=== PATIENT | female | born 1935 | race Caucasian/White ===

== ENCOUNTER 2021-06-28 10:45 | Outpatient (CLI) | payer MEDICARE, BC | END 2021-06-28 10:46 | disposition home or self-care (01) | LOC: BICULT 10:45 | PROVIDERS: ATTEND Family Medicine | DX: N18.31 Chronic kidney disease, stage 3a (principal) | CPT/HCPCS: 76770; 93975 ==

== ENCOUNTER 2022-03-07 10:32 | Inpatient (IN) | payer MEDICARE, BC ==
[2022-03-07] MEDS ORDERED: Magnesium 2 GM/50 ML BAG (IN WATER) ONE (10:49)
[2022-03-07] MEDS ORDERED: Furosemide 40 MG/4 ML VIAL ONE ×2 (10:49→11:25)
[2022-03-07 10:51] LABS: Actual Bicarbonate (HCO3a) 24.5 mEq/L (22-28); Analyzer IN Cardio ER; Base Excess (BEa) -3.4 mEq/L (-2.0 to +3.0); Calcium, Ionized (arterial) 1.15 mmol/L (1.12-1.30); Carboxyhemoglobin (COHb) 0.3 gm% (0.0-3.0); Hemoglobin (Hb) 12.3 g/dL (12.0-16.0); Potassium - ABG Lab 4.24 mmol/L (3.70-5.30); pH, Arterial 7.25 (7.35-7.45)
[2022-03-07] MEDS ORDERED: Rocuronium Bromide 10 MG/ML (10ML VIAL) ONE (10:51)
[2022-03-07 11:03] LABS: #Lymphocytes 2.7 thou/uL (1.20-3.40); #Monocytes 0.6 thou/uL (0.11-0.59); #Neutrophils 6.6 thou/uL (1.40-6.50); %Eosinophils 0.4 % (0.0-10.0); %Lymphocytes 27.2 % (21.0-51.0); %Monocytes 6.1 % (0.0-10.0); %Neutrophils 66.3 % (42.0-75.0); Hemoglobin 11.6 g/dL (12.0-16.0); Mean Corpuscular HGB CONC 31.4 g/dL (32.0-36.0); Mean Corpuscular Volume 95.7 fl (78.0-98.0); Mean Platelet Volume 8.4 fL (7.4-10.4); Platelet Count 284 10x3/uL (130-400); RBC Distribution Width 13.4 % (11.5-14.5); Red Blood Cell (RBC) Count 3.85 mill/uL (4.20-5.40); White Blood Cell (WBC) Count 9.9 10x3/uL (4.8-10.8)
[2022-03-07] MEDS ORDERED: Midazolam HCl 2 mg/2 ml Vial ONE (11:21)
[2022-03-07 11:27] LABS: ALT (SGPT) 31 U/L (8-55); AST (SGOT) 32 U/L (5-34); Albumin 3.5 g/dL (3.4-4.8); Alkaline Phosphatase 103 U/L (40-110); Anion Gap 12 mmol/L (10-20); BUN (Urea Nitrogen) 21 mg/dL (9.8-20.1); Bilirubin, Total 1.2 mg/dL (0.2-1.2); CK (CPK) 67 U/L (29-168); Calc. Creatinine Clearance 0 mL/min (70-130); Calcium 8.9 mg/dL (7.8-10.44); Carbon Dioxide 25 mmol/L (23-31); Chloride 102 mmol/L (98-107); Estimated GFR 40; Globulin 2.9 g/dL (2.4-3.5); Glucose 290 mg/dL (83-110); Lipase 8 U/L (8-78); Magnesium 2.1 mg/dL (1.6-2.6); Protein, Total 6.4 g/dL (5.8-8.1); Sodium 135 mmol/L (136-145)
[2022-03-07] MEDS ORDERED: Aspirin 300 MG Suppository ONE (11:29)
[2022-03-07 11:30] LABS: Actual Bicarbonate (HCO3a) 20.4 mEq/L (22-28); Analyzer IN Cardio ER; Base Excess (BEa) -3.4 mEq/L (-2.0 to +3.0); CO2 Tension 32.7 mmHg (35.0-45.0); Calcium, Ionized (arterial) 1.16 mmol/L (1.12-1.30); Carboxyhemoglobin (COHb) 0.3 gm% (0.0-3.0); O2 Tension (PaO2), arterial 160.5 mmHg (> 60.0); Potassium - ABG Lab 3.78 mmol/L (3.70-5.30); pH, Arterial 7.41 (7.35-7.45)
[2022-03-07] MEDS ORDERED: Fentanyl CADD 100 ML IV SCH (11:30)
[2022-03-07 11:45] LABS: Bacteria/HPF None Seen HPF (None Seen); Bilirubin Negative (Negative); Blood, Urine Trace (Negative); Clarity Clear (Clear); Glucose, Urine (Dipstick) 70 mg/dL (Negative); Ketone, Urine Negative (Negative); Leukocyte Negative Leu/uL (Negative); Nitrite Negative (Negative); Protein, Urine (Dipstick) 70 mg/dL (Neg-Trace); RBC/HPF 0-3 HPF (0-3); Specific Gravity, Urine 1.025 (1.002-1.036); Squamous Epithelial 0-3 HPF (0-3); Urobilinogen Normal mg/dL (Less than 2); WBC/HPF 0-3 HPF (0-3); pH, Urine 5.5 (5.0-9.0)
[2022-03-07 12:10] LABS: SARS-CoV-2 NAA Rapid Test Not Detected (NotDetected)
[2022-03-07 12:30] LABS: ALV-art Gradient 226.425 mmHg (0-20); Puncture Site RBA
[2022-03-07 12:32] LABS: Puncture Site LBA
[2022-03-07] MEDS ORDERED: Insulin Regular 300 UNITS/3 ML VIAL SC PRN (13:01)
[2022-03-07] MEDS ORDERED: Ventilator Sedation Protocol 1 EACH FS SCH (13:15)
[2022-03-07] MEDS ORDERED: Propofol 1,000 MG/100 ML VIAL IV PRN (13:30)
[2022-03-07] MEDS ORDERED: Morphine 4 MG/ML VIAL SLOW IVP PRN (13:30)
[2022-03-07] MEDS ORDERED: DISCONTINUE PREVIOUS NARCOTIC PAIN MEDICATIONS AND BENZODIAZEPINES FS SCH (13:30)
[2022-03-07] MEDS ORDERED: Fentanyl BOLUS 250 ML IVPB PRN (13:30)
[2022-03-07] MEDS ORDERED: Propofol BOLUS 1,000 MG/100 ML VIAL IV PRN (13:30)
[2022-03-07 14:08] LABS: Lactic Acid 3.8 mmol/L (0.5-2.2)
[2022-03-07 14:45] LABS: Troponin I 0.069 ng/mL (< 0.028)
[2022-03-07] MEDS: Midazolam HCl 2 mg/2 ml Vial SLOW IVP PRN ×2 (15:47→23:05)
[2022-03-07] MEDS ORDERED: Carvedilol 6.25 MG TAB PO SCH (17:00)
[2022-03-07 17:49] LABS: Troponin I 0.085 ng/mL (< 0.028)
[2022-03-08 04:34] LABS: Anion Gap 16 mmol/L (10-20); BUN (Urea Nitrogen) 24 mg/dL (9.8-20.1); Calc. Creatinine Clearance 31 mL/min (70-130); Calcium 9.1 mg/dL (7.8-10.44); Carbon Dioxide 25 mmol/L (23-31); Chloride 101 mmol/L (98-107); Estimated GFR 41; Glucose 141 mg/dL (83-110); Potassium 3.8 mmol/L (3.5-5.1); Sodium 138 mmol/L (136-145)
[2022-03-08] MEDS: Midazolam HCl 2 mg/2 ml Vial SLOW IVP PRN ×3 (04:50→15:11)
[2022-03-08 04:53] LABS: #Lymphocytes 0.6 thou/uL (1.20-3.40); #Monocytes 0.3 thou/uL (0.11-0.59); #Neutrophils 8.5 thou/uL (1.40-6.50); %Eosinophils 0.1 % (0.0-10.0); %Lymphocytes 6.3 % (21.0-51.0); %Monocytes 3.1 % (0.0-10.0); %Neutrophils 90.5 % (42.0-75.0); Hemoglobin 10.8 g/dL (12.0-16.0); Mean Corpuscular HGB CONC 32.4 g/dL (32.0-36.0); Mean Corpuscular Hemoglobin 29.8 pg (27.0-31.0); Mean Corpuscular Volume 91.8 fl (78.0-98.0); Mean Platelet Volume 8.2 fL (7.4-10.4); Platelet Count 250 10x3/uL (130-400); RBC Distribution Width 13.2 % (11.5-14.5); Red Blood Cell (RBC) Count 3.64 mill/uL (4.20-5.40); White Blood Cell (WBC) Count 9.4 10x3/uL (4.8-10.8)
[2022-03-08 04:54] LABS: Thyroid Stimulating Hormone 0.9842 uIU/mL (0.35-4.94)
[2022-03-08 06:05] LABS: Free T4 (Free Thyroxine) 1.42 ng/dL (0.70-1.48)
[2022-03-08] MEDS ORDERED: Furosemide 40 MG/4 ML VIAL SLOW IVP SCH ×2 (08:00→20:00)
[2022-03-08] MEDS: Famotidine/PF 20 mg/2ml Vial SLOW IVP SCH (08:12)
[2022-03-08] MEDS ORDERED: Fentanyl CADD 100 ML ONE (10:01)
[2022-03-08] MEDS: Fentanyl CADD 100 ML IV SCH (10:30)
[2022-03-08] MEDS ORDERED: DOBUTamine 500 mg/250 ml 250 ML IVPB SCH (10:30)
[2022-03-08] MEDS ORDERED: Potassium Chloride 20 MEQ TAB PO SCH (11:30)
[2022-03-08] MEDS ORDERED: Potassium Bicarbonate/Cit Ac 20 MEQ TAB PO SCH (11:45)
[2022-03-08] MEDS ORDERED: DOBUTAMINE IVPB SCH (12:00)
[2022-03-08] MEDS ORDERED: SODIUM CHLORIDE 0.9% IVPB SCH (12:00)
[2022-03-08] MEDS: Furosemide 40 MG/4 ML VIAL SLOW IVP SCH (15:12)
[2022-03-08] MEDS: Potassium Bicarbonate/Cit Ac 20 MEQ TAB PO SCH (16:14)
[2022-03-09 04:04] LABS: #Lymphocytes 2.5 thou/uL (1.20-3.40); #Neutrophils 8.4 thou/uL (1.40-6.50); %Basophils 0.1 % (0.0-1.0); %Eosinophils 0.2 % (0.0-10.0); %Lymphocytes 20.8 % (21.0-51.0); %Monocytes 8.6 % (0.0-10.0); %Neutrophils 70.3 % (42.0-75.0); Hemoglobin 11.3 g/dL (12.0-16.0); Mean Corpuscular HGB CONC 32.5 g/dL (32.0-36.0); Mean Corpuscular Hemoglobin 29.7 pg (27.0-31.0); Mean Corpuscular Volume 91.4 fl (78.0-98.0); Mean Platelet Volume 7.9 fL (7.4-10.4); Platelet Count 252 10x3/uL (130-400); RBC Distribution Width 13.4 % (11.5-14.5); Red Blood Cell (RBC) Count 3.78 mill/uL (4.20-5.40); White Blood Cell (WBC) Count 11.9 10x3/uL (4.8-10.8)
[2022-03-09] MEDS: Fentanyl CADD 100 ML IV SCH (04:15)
[2022-03-09 04:27] LABS: ALT (SGPT) 30 U/L (8-55); AST (SGOT) 26 U/L (5-34); Albumin 3.2 g/dL (3.4-4.8); Alkaline Phosphatase 88 U/L (40-110); Anion Gap 13 mmol/L (10-20); BUN (Urea Nitrogen) 30 mg/dL (9.8-20.1); Bilirubin, Total 1.1 mg/dL (0.2-1.2); Calc. Creatinine Clearance 26 mL/min (70-130); Calcium 8.8 mg/dL (7.8-10.44); Carbon Dioxide 30 mmol/L (23-31); Chloride 97 mmol/L (98-107); Estimated GFR 34; Globulin 2.8 g/dL (2.4-3.5); Glucose 84 mg/dL (83-110); Potassium 3.7 mmol/L (3.5-5.1); Sodium 136 mmol/L (136-145)
[2022-03-09] MEDS: Furosemide 40 MG/4 ML VIAL SLOW IVP SCH ×2 (05:47→15:46)
[2022-03-09] MEDS: Potassium Bicarbonate/Cit Ac 20 MEQ TAB PO SCH (07:58)
[2022-03-09] MEDS: Famotidine/PF 20 mg/2ml Vial SLOW IVP SCH (08:50)
[2022-03-09] MEDS ORDERED: Potassium Chloride 20 MEQ TAB PO SCH (09:45)
[2022-03-09] MEDS ORDERED: SODIUM CHLORIDE 0.9% IVPB SCH (09:46)
[2022-03-09] MEDS ORDERED: DOBUTAMINE IVPB SCH (09:46)
[2022-03-09] MEDS ORDERED: DC Sedation Protocol FS ONE (12:17)
[2022-03-09] MEDS: Potassium Chloride 20 MEQ in Premix Bag 1 BAG IVPB SCH (20:27)
[2022-03-09] MEDS ORDERED: Amiodarone 150 MG, Admixture Fee 1 EACH in Dextrose 5% in Water 100 ML IVPB SCH (20:30)
[2022-03-09] MEDS ORDERED: Digoxin 0.5 MG/2 ML AMP SLOW IVP SCH (20:30)
[2022-03-09] MEDS: Amiodarone 450 MG, Admixture Fee 1 EACH in Dextrose 5% in Water 250 ML IVPB SCH (20:38)
[2022-03-10 04:08] LABS: #Lymphocytes 1.3 thou/uL (1.20-3.40); #Monocytes 0.7 thou/uL (0.11-0.59); #Neutrophils 6.7 thou/uL (1.40-6.50); %Eosinophils 0.2 % (0.0-10.0); %Lymphocytes 14.5 % (21.0-51.0); %Monocytes 8.1 % (0.0-10.0); %Neutrophils 77.1 % (42.0-75.0); Hemoglobin 11.9 g/dL (12.0-16.0); Mean Corpuscular HGB CONC 32.5 g/dL (32.0-36.0); Mean Corpuscular Hemoglobin 30.1 pg (27.0-31.0); Mean Corpuscular Volume 92.8 fl (78.0-98.0); Mean Platelet Volume 8.2 fL (7.4-10.4); Platelet Count 249 10x3/uL (130-400); RBC Distribution Width 13.3 % (11.5-14.5); Red Blood Cell (RBC) Count 3.93 mill/uL (4.20-5.40); White Blood Cell (WBC) Count 8.7 10x3/uL (4.8-10.8)
[2022-03-10 04:30] LABS: ALT (SGPT) 30 U/L (8-55); AST (SGOT) 28 U/L (5-34); Albumin 3.5 g/dL (3.4-4.8); Alkaline Phosphatase 91 U/L (40-110); Anion Gap 12 mmol/L (10-20); BUN (Urea Nitrogen) 29 mg/dL (9.8-20.1); Bilirubin, Total 1.3 mg/dL (0.2-1.2); Calc. Creatinine Clearance 28 mL/min (70-130); Calcium 9.1 mg/dL (7.8-10.44); Carbon Dioxide 34 mmol/L (23-31); Chloride 93 mmol/L (98-107); Estimated GFR 38; Globulin 3.2 g/dL (2.4-3.5); Glucose 115 mg/dL (83-110); Potassium 3.9 mmol/L (3.5-5.1); Protein, Total 6.7 g/dL (5.8-8.1); Sodium 135 mmol/L (136-145)
[2022-03-10] MEDS: Furosemide 40 MG/4 ML VIAL SLOW IVP SCH (05:06)
[2022-03-10] MEDS: Amiodarone 450 MG, Admixture Fee 1 EACH in Dextrose 5% in Water 250 ML IVPB SCH ×2 (05:06→23:29)
[2022-03-10] MEDS: Famotidine/PF 20 mg/2ml Vial SLOW IVP SCH (09:29)
[2022-03-10] MEDS: Potassium Chloride 20 MEQ in Premix Bag 1 BAG IVPB SCH ×2 (09:29→21:34)
[2022-03-10] MEDS ORDERED: Carvedilol 3.125 MG TAB PO SCH (11:30)
[2022-03-10] MEDS ORDERED: Ondansetron PF 4 MG/2 ML Vial IVP PRN (11:34)
[2022-03-10] MEDS: Carvedilol 6.25 MG TAB PO SCH (17:12)
[2022-03-10] MEDS ORDERED: Artificial Tear Sol 15 ML BOT EA EYE PRN (17:59)
[2022-03-10] MEDS: SYSTANE GEL OPHTH DROPS 10 ML EA EYE SCH (21:35)
[2022-03-11 04:30] LABS: #Monocytes 0.5 thou/uL (0.11-0.59); #Neutrophils 6.6 thou/uL (1.40-6.50); %Basophils 0.2 % (0.0-1.0); %Eosinophils 0.5 % (0.0-10.0); %Lymphocytes 12.5 % (21.0-51.0); %Monocytes 6.4 % (0.0-10.0); %Neutrophils 80.3 % (42.0-75.0); Hemoglobin 11.5 g/dL (12.0-16.0); Mean Corpuscular HGB CONC 34.4 g/dL (32.0-36.0); Mean Corpuscular Hemoglobin 31.9 pg (27.0-31.0); Mean Corpuscular Volume 92.9 fl (78.0-98.0); Mean Platelet Volume 7.9 fL (7.4-10.4); Platelet Count 228 10x3/uL (130-400); RBC Distribution Width 12.6 % (11.5-14.5); White Blood Cell (WBC) Count 8.2 10x3/uL (4.8-10.8)
[2022-03-11 05:00] LABS: ALT (SGPT) 27 U/L (8-55); AST (SGOT) 28 U/L (5-34); Albumin 3.2 g/dL (3.4-4.8); Alkaline Phosphatase 89 U/L (40-110); Anion Gap 14 mmol/L (10-20); BUN (Urea Nitrogen) 30 mg/dL (9.8-20.1); Bilirubin, Total 1.1 mg/dL (0.2-1.2); Calc. Creatinine Clearance 29 mL/min (70-130); Calcium 9.1 mg/dL (7.8-10.44); Carbon Dioxide 32 mmol/L (23-31); Chloride 91 mmol/L (98-107); Estimated GFR 42; Glucose 95 mg/dL (83-110); Potassium 4.3 mmol/L (3.5-5.1); Protein, Total 6.2 g/dL (5.8-8.1); Sodium 133 mmol/L (136-145)
[2022-03-11] MEDS: Furosemide 40 MG/4 ML VIAL SLOW IVP SCH (05:01)
[2022-03-11] MEDS: Potassium Chloride 20 MEQ in Premix Bag 1 BAG IVPB SCH ×2 (10:05→21:17)
[2022-03-11] MEDS: Famotidine/PF 20 mg/2ml Vial SLOW IVP SCH (10:05)
[2022-03-11] MEDS: Carvedilol 6.25 MG TAB PO SCH ×2 (10:05→15:47)
[2022-03-11] MEDS ORDERED: Amiodarone 200 MG TAB PO SCH (15:00)
[2022-03-11] MEDS: Amiodarone 200 MG TAB PO SCH (21:16)
[2022-03-11] MEDS: SYSTANE GEL OPHTH DROPS 10 ML EA EYE SCH (21:18)
[2022-03-12 04:38] LABS: #Eosinphils 0.1 thou/uL (0.0-0.7); #Lymphocytes 1.7 thou/uL (1.20-3.40); #Monocytes 0.7 thou/uL (0.11-0.59); #Neutrophils 4.3 thou/uL (1.40-6.50); %Basophils 0.7 % (0.0-1.0); %Lymphocytes 24.6 % (21.0-51.0); %Monocytes 10.8 % (0.0-10.0); %Neutrophils 61.9 % (42.0-75.0); Hemoglobin 12.2 g/dL (12.0-16.0); Mean Corpuscular Volume 94.2 fl (78.0-98.0); Mean Platelet Volume 7.8 fL (7.4-10.4); Platelet Count 242 10x3/uL (130-400); RBC Distribution Width 12.8 % (11.5-14.5); Red Blood Cell (RBC) Count 3.81 mill/uL (4.20-5.40); White Blood Cell (WBC) Count 6.9 10x3/uL (4.8-10.8)
[2022-03-12 04:59] LABS: ALT (SGPT) 24 U/L (8-55); AST (SGOT) 21 U/L (5-34); Albumin 3.2 g/dL (3.4-4.8); Alkaline Phosphatase 80 U/L (40-110); Anion Gap 11 mmol/L (10-20); BUN (Urea Nitrogen) 32 mg/dL (9.8-20.1); Calc. Creatinine Clearance 30 mL/min (70-130); Calcium 8.9 mg/dL (7.8-10.44); Carbon Dioxide 33 mmol/L (23-31); Chloride 92 mmol/L (98-107); Estimated GFR 44; Globulin 2.9 g/dL (2.4-3.5); Glucose 90 mg/dL (83-110); Potassium 4.6 mmol/L (3.5-5.1); Protein, Total 6.1 g/dL (5.8-8.1); Sodium 131 mmol/L (136-145)
[2022-03-12] MEDS: Furosemide 40 MG/4 ML VIAL SLOW IVP SCH (05:33)
[2022-03-12] MEDS: Potassium Chloride 20 MEQ in Premix Bag 1 BAG IVPB SCH ×2 (08:37→20:55)
[2022-03-12] MEDS: Amiodarone 200 MG TAB PO SCH (08:39)
[2022-03-12] MEDS: Carvedilol 6.25 MG TAB PO SCH ×2 (08:42→16:53)
[2022-03-12] MEDS: Famotidine/PF 20 mg/2ml Vial SLOW IVP SCH (08:44)
[2022-03-12 16:31] VITALS: BMI 23.2
[2022-03-12] MEDS: SYSTANE GEL OPHTH DROPS 10 ML EA EYE SCH (20:55)
[2022-03-13 02:44] LABS: #Eosinphils 0.1 thou/uL (0.0-0.7); #Lymphocytes 2.1 thou/uL (1.20-3.40); #Monocytes 0.8 thou/uL (0.11-0.59); #Neutrophils 4.6 thou/uL (1.40-6.50); %Basophils 0.4 % (0.0-1.0); %Eosinophils 1.8 % (0.0-10.0); %Monocytes 9.9 % (0.0-10.0); %Neutrophils 60.9 % (42.0-75.0); Hemoglobin 11.6 g/dL (12.0-16.0); Mean Corpuscular HGB CONC 31.6 g/dL (32.0-36.0); Mean Corpuscular Hemoglobin 29.7 pg (27.0-31.0); Mean Corpuscular Volume 94.2 fl (78.0-98.0); Mean Platelet Volume 7.9 fL (7.4-10.4); Platelet Count 262 10x3/uL (130-400); RBC Distribution Width 12.7 % (11.5-14.5); Red Blood Cell (RBC) Count 3.89 mill/uL (4.20-5.40); White Blood Cell (WBC) Count 7.6 10x3/uL (4.8-10.8)
[2022-03-13 03:02] LABS: Anion Gap 11 mmol/L (10-20); BUN (Urea Nitrogen) 36 mg/dL (9.8-20.1); Calc. Creatinine Clearance 29 mL/min (70-130); Calcium 8.8 mg/dL (7.8-10.44); Carbon Dioxide 33 mmol/L (23-31); Chloride 94 mmol/L (98-107); Estimated GFR 41; Glucose 86 mg/dL (83-110); Potassium 4.8 mmol/L (3.5-5.1); Sodium 133 mmol/L (136-145)
[2022-03-13] MEDS: Furosemide 40 MG/4 ML VIAL SLOW IVP SCH (06:10)
[2022-03-13] MEDS ORDERED: Carvedilol 3.125 MG TAB PO SCH (08:00)
[2022-03-13] MEDS: Amiodarone 200 MG TAB PO SCH (09:09)
[2022-03-13] MEDS: Potassium Chloride 20 MEQ in Premix Bag 1 BAG IVPB SCH (09:09)
[2022-03-13] MEDS: Famotidine/PF 20 mg/2ml Vial SLOW IVP SCH (09:12)
[2022-03-13] MEDS: Lisinopril 5 MG TAB PO SCH (21:00)
[2022-03-13] MEDS: SYSTANE GEL OPHTH DROPS 10 ML EA EYE SCH (21:01)
[2022-03-14] MEDS: Furosemide 40 MG/4 ML VIAL SLOW IVP SCH (05:16)
[2022-03-14 07:01] LABS: #Eosinphils 0.1 thou/uL (0.0-0.7); #Lymphocytes 1.7 thou/uL (1.20-3.40); #Monocytes 0.7 thou/uL (0.11-0.59); #Neutrophils 6.4 thou/uL (1.40-6.50); %Basophils 0.2 % (0.0-1.0); %Lymphocytes 19.4 % (21.0-51.0); %Monocytes 7.8 % (0.0-10.0); %Neutrophils 71.7 % (42.0-75.0); Hemoglobin 12.6 g/dL (12.0-16.0); Mean Corpuscular HGB CONC 31.9 g/dL (32.0-36.0); Mean Corpuscular Hemoglobin 30.2 pg (27.0-31.0); Mean Corpuscular Volume 94.5 fl (78.0-98.0); Mean Platelet Volume 7.8 fL (7.4-10.4); Platelet Count 277 10x3/uL (130-400); RBC Distribution Width 12.9 % (11.5-14.5); Red Blood Cell (RBC) Count 4.19 mill/uL (4.20-5.40); White Blood Cell (WBC) Count 8.9 10x3/uL (4.8-10.8)
[2022-03-14 07:18] LABS: Anion Gap 14 mmol/L (10-20); BUN (Urea Nitrogen) 33 mg/dL (9.8-20.1); Calc. Creatinine Clearance 24 mL/min (70-130); Calcium 8.8 mg/dL (7.8-10.44); Carbon Dioxide 28 mmol/L (23-31); Chloride 94 mmol/L (98-107); Estimated GFR 35; Glucose 87 mg/dL (83-110); Potassium 4.2 mmol/L (3.5-5.1); Sodium 132 mmol/L (136-145)
[2022-03-14] MEDS: Amiodarone 200 MG TAB PO SCH (08:38)
[2022-03-14] MEDS ORDERED: Furosemide 20 MG TAB PO SCH ×2 (09:00→09:35)
[2022-03-14] MEDS: Lisinopril 5 MG TAB PO SCH (09:50)
[2022-03-14] MEDS ORDERED: Aspirin 81 mg Enteric Coated Tablet PO SCH (10:00)
[2022-03-14 13:47] VITALS: BP 122/62; TEMP 97.5
[2022-03-15] MEDS ORDERED: Furosemide 40 MG TAB PO SCH (07:30)
[2022-03-15] MEDS ORDERED: Aspirin 81 mg Enteric Coated Tablet PO SCH (09:00)
[2022-03-15] MEDS ORDERED: Empagliflozin 10 MG TAB PO SCH (09:00)
== END 2022-03-14 14:38 | DRG 208 ==
LOC: ERS 10:32 → ERHOLD 10:53 → CCU 13:30 → IMCU/EMU 03-10 14:25 → T4-B 03-13 22:20
PROVIDERS: ADMIT Internal Medicine; ATTEND Internal Medicine
PROC: 5A1945Z Respiratory Ventilation, 24-96 Consecutive Hours (ICD-10-PCS; principal; 2022-03-07)
PROC: 0BH17EZ Insertion of Endotracheal Airway into Trachea, Via Natural or Artificial Opening (ICD-10-PCS; 2022-03-07)
PROC: 0D9670Z Drainage of Stomach with Drainage Device, Via Natural or Artificial Opening (ICD-10-PCS; 2022-03-07)
DX: J96.01 Acute respiratory failure with hypoxia (principal); Z66 Do not resuscitate; I50.23 Acute on chronic systolic (congestive) heart failure; I13.0 Hypertensive heart and chronic kidney disease with heart failure and stage 1 through stage 4 chronic kidney disease, or unspecified chronic kidney disease; N18.30 Chronic kidney disease, stage 3 unspecified; I25.10 Atherosclerotic heart disease of native coronary artery without angina pectoris; I25.5 Ischemic cardiomyopathy; I73.9 Peripheral vascular disease, unspecified; I48.0 Paroxysmal atrial fibrillation; D63.1 Anemia in chronic kidney disease; Z79.01 Long term (current) use of anticoagulants; Z95.1 Presence of aortocoronary bypass graft; Z99.89 Dependence on other enabling machines and devices
CPT/HCPCS: 31500; 36415; 36416; 36600; 51702; 71045; 80048; 80053; 81003; 81015; 82533; 82550; 82553; 82805; 83605; 83690; 83735; 83880; 84439; 84443; 84481; 84484; 85025; 93005; 93010; 93306; 94002; 94003; 94660; 96365; 96375; J0282; J1160; J1250; J1650; J1815; J1940; J2250; J2405; J3010; J3475; J3480; J7050; J7070; S0028